=== PATIENT | male | born 1990 | race Caucasian/White ===

== ENCOUNTER 2019-01-06 18:28 | Emergency (ER) | payer SELFPAY ==
[2019-01-06] MEDS ORDERED: MAGNESIUM HYDROXIDE/AL HYDROX 30 ML, LIDOCAINE VISC 2% 15ML 15 ML PO ONE ×2 (18:54)
[2019-01-06 19:03] LABS: BASO % 0.5 % (0-6); EOS % 1.4 % (0-6); GRAN % 47.3 % (47-80); HEMATOCRIT 44.8 % (42.0-52.0); HEMOGLOBIN 15.8 gm/dl (14.0-18.0); LYMPH % 44.5 % (16-45); MEAN CELL VOLUME 95.3 fl (81-97); MEAN CORPUSCULAR HEMOGLOBIN 33.6 pg (27-33); MEAN CORPUSCULAR HGB CONC 35.3 g/dl (32-36); MEAN PLATELET VOLUME 10.3 fl (7.4-10.4); MONO % 6.3 % (0-9); PLATELET COUNT 143 K/uL (130-400); RED CELL DISTRIBUTION WIDTH 12.2 % (11.5-14.5); WHITE BLOOD COUNT W/O DIFF 4.3 K/uL (4.2-12.2)
[2019-01-06 19:17] LABS: BLOOD UREA NITROGEN 8 mg/dL (6-20); CREATININE 0.8 mg/dL (0.7-1.2); EST GLOMERULAR FILTRATION RATE > 60 mL/min; LIPASE 18 U/L (13-60); TOTAL PROTEIN 6.5 g/dL (6.6-8.7)
[2019-01-06 19:19] LABS: GLUCOSE,RANDOM 102 mg/dL (74-109)
[2019-01-06 19:22] LABS: ALBUMIN 4.6 g/dL (4.0-5.0); ALKALINE PHOSPHATASE 46 U/L (40-129); ALT/SGPT 15 U/L (<41); AST/SGOT 18 U/L (10.0-50.0)
--- NOTE | 2019-01-06 19:24 | Emergency Department Record ---
History of Present Illness - General Chief Complaint: Abdominal Pain Stated Complaint: ABD PAIN Time Seen by Provider: 01/06/19 18:42 Source: Patient Mode of Arrival: Ambulatory Limitations: No limitations - History of Present Illness Initial Comments: The patient is here due to a 6 day hx of AP. The pain is mainly around his umbilicus and is described as a sharp stabbing pain that comes and goes. He denies any nausea, vomiting, diarrhea, fever or early satiety. The patient states food does not make the pain better or worse and his appetite has been normal. He did go to [facility] 3 days ago and was prescribed Carafate and now is feeling better but the pain is not completely gone. He has had no hx of any abdominal surgeries or any medical issues. MD Complaint: Abdominal pain Onset/Timin -: Days(s) Location: Periumbilical Severity scale (1-10): 8 Quality: Sharp, Stabbing Improves With: Nothing Worsens With: Nothing Associated Symptoms: Denies other symptoms - Related Data Home Medications Medication Instructions Recorded Confirmed Last Taken Sucralfate 1 gm PO QID 01/06/19 01/06/19 01/06/19 Allergies Allergy/AdvReac Type Severity Reaction Status Date / Time No Known Drug Allergies Allergy Verified 01/06/19 18:42 Travel Screening - Travel/Exposure Within Last 30 Days Have you traveled within the last 30 days?: No - Travel/Exposure Within Last Year Have you traveled outside the [place] in the last year?: No - Additonal Travel Details Have you been exposed to anyone with a communicable illness?: No - Travel Symptoms Symptom Screening: None Review of Systems Constitutional: Denies: Chills, Fever Eyes: Denies: Eye discharge ENT: Denies: Congestion Respiratory: Denies: Cough, Dyspnea Past Medical History - SOCIAL HISTORY Smoking Status: Current every day smoker Alcohol Use: Heavy Drug Use: None - RESPIRATORY Hx Respiratory Disorders: No - CARDIOVASCULAR Hx Cardio Disorders: No - NEURO Hx Neuro Disorders: No - GI Hx GI Disorders: No - Hx Genitourinary Disorders: No - ENDOCRINE Hx Endocrine Disorders: No - MUSCULOSKELETAL Hx Musculoskeletal Disorders: No - PSYCH Hx Psych Problems: No - HEMATOLOGY/ONCOLOGY Hx Hematology/Oncology Disorders: No Family Medical History Any Significant Family History?: No Hx Cancer: Mother Physical Exam - General General Appearance: Alert, Oriented x3 - Head Head exam: Atraumatic, Normocephalic, Normal inspection - Eye Eye exam: Normal appearance, PERRL - ENT Throat exam: Normal inspection. negative: Tonsillar erythema, Tonsillar exudate - Neck Neck exam: Normal inspection, Full ROM. negative: Tenderness - Respiratory Respiratory exam: Normal lung sounds bilaterally. negative: Respiratory distress - Cardiovascular Cardiovascular Exam: Regular rate, Normal rhythm, Normal heart sounds - GI/Abdominal GI/Abdominal exam: Soft, Normal bowel sounds. negative: Guarding, Pulsatile mass, Rebound, Rigid, Tenderness (The abdomen is soft and nontender.) - Extremities Extremities exam: Normal inspection, Full ROM, Normal capillary refill. negative: Tenderness - Back Back exam: Reports: Normal inspection - Neurological Neurological exam: Alert, Normal gait. negative: Abnormal gait, Motor sensory deficit - Psychiatric Psychiatric exam: negative: Anxious Course Vital Signs 01/06/19 18:30 Temperature 98.2 F Pulse Rate 68 Respiratory 16 Rate Blood Pressure 153/99 Pulse Ox 99 - Reevaluation(s) Reevaluation #1: The patient is doing well at this time and denies any pain or or nausea. I did explain to him that the lab tests are basically WNL's. He is to cut back on his alcohol intake and recheck with a PCP next week. He is to return to the ER for any worsening symptoms. 01/06/19 19:34 Medical Decision Making - Lab Data Result diagrams: 01/06/19 19:00 01/06/19 19:00 Lab Results 01/06/19 Range/Units 19:00 WBC 4.3 (4.2-12.2) K/uL RBC 4.70 (4.40-5.70) M/uL Hgb 15.8 (14.0-18.0) gm/dl Hct 44.8 (42.0-52.0) % MCV 95.3 (81-97) fl MCH 33.6 H (27-33) pg MCHC 35.3 (32-36) g/dl RDW 12.2 (11.5-14.5) % Plt Count 143 (130-400) K/uL MPV 10.3 (7.4-10.4) fl Gran % 47.3 (47-80) % Lymphocytes % 44.5 (16-45) % Monocytes % 6.3 (0-9) % Eosinophils % 1.4 (0-6) % Basophils % 0.5 (0-6) % Disposition Disposition: Discharge Clinical Impression: Abdominal pain Qualifiers: Abdominal location: unspecified location Qualified Code(s): R10.9 - Unspecified abdominal pain Disposition: Home, Self-Care Condition: (2) Stable Instructions: Abdominal Pain (ED) Additional Instructions: Please continue your Carafate and cut way back on your alcohol intake. Please see a family doctor next week for recheck. Return to the ER for any worsening AP , nausea, vomiting, or fever. Forms: Patient Portal Access Time of Disposition: 19:31 Quality - Quality Measures Quality Measures: N/A - Blood Pressure Screening View Details: Yes Does Patient Have Any of the Following: No Blood Pressure Classification: Hypertensive Reading Systolic Measurement: 153 Diastolic Measurement: 99 Screening for High Blood Pressure: < First Hypertensive BP, F/U Documented > [ G8950] First Hypertensive Follow-up Interventions: Referral to alternative/primary care provider.
[2019-01-06 19:25] LABS: BILIRUBIN,DIRECT < 0.2 mg/dL (0-0.3)
== END 2019-01-06 19:35 | disposition home or self-care (01) ==
LOC: ER 18:28
DX: R10.33 Periumbilical pain (principal); F17.210 Nicotine dependence, cigarettes, uncomplicated
CPT/HCPCS: 80048; 80076; 83690; 85025; 99283; 99284

== ENCOUNTER 2019-11-05 18:29 | Emergency (ER) | payer SELFPAY ==
[2019-11-05] MEDS ORDERED: ORPHENADRINE CITRATE 60MG/2ML VIAL IM ONE (18:52)
[2019-11-05] MEDS ORDERED: HYDROCODONE/APAP 5/325MG TABLET PO ONE ×2 (18:52→19:41)
[2019-11-05] MEDS ORDERED: KETOROLAC 30 MG/ML VIAL IM ONE (18:52)
--- NOTE | 2019-11-05 18:53 | Emergency Department Record ---
History of Present Illness - General Chief Complaint: Back Pain/Injury Stated Complaint: LOWER BACK Time Seen by Provider: 11/05/19 18:41 Source: Patient Mode of Arrival: Ambulatory Limitations: No limitations - History of Present Illness Initial Comments: 29 yo male presents with lower back pain. The onset was about 4 days ago. The onset was fairly gradual. He denies and specific injury. The pain goes across the lower. It does radiate into the glutteal area. No weakness, numbness, tingling. No changes in bowel or bladder function. No fevers. No prior pain surgery. The radiation goes more to the left buttocks. It hurts to change positions. No chronic medical conditions. MD Complaint: Back pain Onset/Timin -: Days(s) Place: Home Radiation: None Severity: Moderate Severity scale (1-10): 10 Quality: Aching, Dull Consistency: Constant Improves With: None Worsens With: Movement Treatments Prior to Arrival: Acetaminophen, NSAIDS - Related Data Previous Rx's Medication Instructions Recorded Cyclobenzaprine HCl [Flexeril] 10 mg PO TID #15 tablet 11/05/19 Naproxen [Naprosyn] 500 mg PO Q12H #20 tab. 11/05/19 Prednisone [Prednisone 20Mg] 20 mg PO BID #10 tab 11/05/19 Allergies Allergy/AdvReac Type Severity Reaction Status Date / Time No Known Drug Allergies Allergy Verified 11/05/19 18:39 Travel Screening - Travel/Exposure Within Last 30 Days Have you traveled within the last 30 days?: No - Travel/Exposure Within Last Year Have you traveled outside the [place] in the last year?: No - Additonal Travel Details Have you been exposed to anyone with a communicable illness?: No - Travel Symptoms Symptom Screening: None Review of Systems Constitutional: Denies: Chills, Fever, Malaise, Weakness Eyes: Denies: Eye discharge, Eye pain ENT: Denies: Congestion, Throat pain Respiratory: Denies: Cough, Dyspnea Cardiovascular: Denies: Chest pain Endocrine: Denies: Fatigue Gastrointestinal: Denies: Abdominal pain, Diarrhea, Nausea, Vomiting Genitourinary: Denies: Dysuria, Frequency, Hematuria Musculoskeletal: Reports: Arthralgia, Back pain, Myalgia. Denies: Joint swelling, Neck pain Skin: Denies: Bruising, Change in color, Rash Neurological: Denies: Abnormal gait, Headache, Numbness, Tingling, Tremors, Weakness Psychiatric: Denies: Anxiety Hematological/Lymphatic: Denies: Easy bleeding, Easy bruising Past Medical History - SOCIAL HISTORY Smoking Status: Current every day smoker Alcohol Use: Rare Drug Use: None - RESPIRATORY Hx Respiratory Disorders: No - CARDIOVASCULAR Hx Cardio Disorders: No - NEURO Hx Neuro Disorders: No - GI Hx GI Disorders: No - Hx Genitourinary Disorders: No - ENDOCRINE Hx Endocrine Disorders: No - MUSCULOSKELETAL Hx Musculoskeletal Disorders: No - PSYCH Hx Psych Problems: No - HEMATOLOGY/ONCOLOGY Hx Hematology/Oncology Disorders: No Family Medical History Any Significant Family History?: Yes Hx Cancer: Mother Physical Exam - General General Appearance: Alert, Oriented x3, Cooperative, No acute distress Limitations: No limitations - Head Head exam: Atraumatic, Normal inspection - Eye Eye exam: Normal appearance. negative: Conjunctival injection - ENT ENT exam: Normal exam Ear exam: Normal external inspection Nasal Exam: Normal inspection Mouth exam: Normal external inspection - Neck Neck exam: Normal inspection, Full ROM - Cardiovascular Cardiovascular Exam: Regular rate, Normal rhythm - GI/Abdominal GI/Abdominal exam: Soft. negative: Guarding, Rebound, Rigid, Tenderness - Rectal Rectal exam: Deferred - exam: Deferred - Extremities Extremities exam: Normal inspection, Full ROM. negative: Calf tenderness, Joint swelling, Pedal edema, Tenderness - Back Back exam: Reports: Full ROM, Muscle spasm, Paraspinal tenderness, Tenderness, Vertebral tenderness, Other (Foot flexion and extension intact, no weakness). Denies: Rash noted - Neurological Neurological exam: Alert, Normal gait, Oriented X3, Reflexes normal. negative: Abnormal gait, CN II-XII intact, Motor sensory deficit - Psychiatric Psychiatric exam: Normal affect, Normal mood. negative: Agitated, Anxious - Skin Skin exam: Dry, Intact, Normal color, Warm Course Vital Signs 11/05/19 18:34 Temperature 97.9 F Pulse Rate 90 Respiratory 16 Rate Blood Pressure 161/96 Pulse Ox 100 - Reevaluation(s) Reevaluation #1: 11/05/19 18:57 The examination is consistent with musculo-skeletal etiology He is neurologically intact as tested 11/05/19 19:24 UA is negative 11/05/19 19:27 The XRs were reviewed No acute process noted on my preliminary read with final to follow. 11/05/19 19:42 We discussed the results of the tests and questions were answered. We discussed back pain is likely muscle/ligaments. He does not have any signs of neurologic component. I explained back pain typically last several days to weeks We discussed signs of more serious conditions that should prompt an immediate evaluation We discussed at length reasons to immediately return to the ED as well as close follow up. 11/05/19 20:25 Disposition Disposition: Discharge Clinical Impression: Low back strain Qualifiers: Encounter type: initial encounter Qualified Code(s): S39.012A - Strain of muscle, fascia and tendon of lower back, initial encounter Disposition: Home, Self-Care Condition: (1) Good Instructions: Low Back Strain (ED) Additional Instructions: Review this ER visit and the tests performed with your family doctor Call your doctor for the next available follow up appointment Return to the ER for a recheck immediately if worse, any new concerns or questions Take the prescriptions provided as directed Prescriptions: Cyclobenzaprine HCl [Flexeril] 10 mg PO TID #15 tablet Naproxen [Naprosyn] 500 mg PO Q12H #20 tab. Prednisone [Prednisone 20Mg] 20 mg PO BID #10 tab Forms: Patient Portal Access Time of Disposition: 19:38 Quality - Quality Measures Quality Measures: N/A - Blood Pressure Screening Does Patient Have Any of the Following: No Blood Pressure Classification: Hypertensive Reading Systolic Measurement: 161 Diastolic Measurement: 96 Screening for High Blood Pressure: < Pre-Hypertensive BP, F/U Documented > [G8950] Pre-Hypertensive Follow-up Interventions: Referral to alternative/primary care provider.
[2019-11-05 19:05] LABS: URINE APPEARANCE CLEAR; URINE BILIRUBIN NEGATIVE (NEGATIVE); URINE BLOOD NEGATIVE (NEGATIVE); URINE COLOR COLORLESS; URINE GLUCOSE (UA) NEGATIVE (NEGATIVE); URINE KETONE NEGATIVE (NEGATIVE); URINE LEUKOCYTE ESTERASE NEGATIVE (NEGATIVE); URINE NITRITE NEGATIVE (NEGATIVE); URINE PROTEIN NEGATIVE (NEGATIVE); URINE UROBILINOGEN 0.2 E.U./dL (0.20 - 1.00)
--- NOTE | 2019-11-05 19:36 | RADIOLOGY REPORT ---
EXAMINATION: Lumbar Spine Two or Three Views EXAM DATE: 11/05/2019 7:25 PM TECHNIQUE: AP and lateral views INDICATION: lumbar pain COMPARISON: None FINDINGS: 2 views, 3 images. No evidence of fracture, subluxation, or other acute bony abnormality. The disc sp aces and vertebral body heights are well-maintained. IMPRESSION: Normal examination. Dictated by: Adama Rodríguez MD on 11/05/2019 7:31 PM. .
[2019-11-05] MEDS ORDERED: PREDNISONE 20 MG TAB PO ONE (19:41)
== END 2019-11-05 19:55 | disposition home or self-care (01) ==
LOC: ER 18:29
DX: S39.011A Strain of muscle, fascia and tendon of abdomen, initial encounter (principal); X58.XXXA Exposure to other specified factors, initial encounter; Y92.009 Unspecified place in unspecified non-institutional (private) residence as the place of occurrence of the external cause; F17.210 Nicotine dependence, cigarettes, uncomplicated
CPT/HCPCS: 72100; 81003; 96372; 99284; J1885; J2360; J7512